=== PATIENT | female | born 1965 | race Caucasian/White ===

== ENCOUNTER 2021-01-07 10:41 | Emergency (ER) | payer OTHER ==
[~2021-01-07] VITALS: Ht 134.6 cm; Wt 31.8 kg
[~2021-01-07 10:41] MED LIST: NOHOMEMEDICATIONS; PERCOCET 5-3251 EACH PO
[2021-01-07 11:31] LABS: ABSOLUTE NEUTROPHILS 3.8 thou/uL (1.4-8.2); BASOPHILS 0.5 % (0.0-2.0); EOSINOPHILS 0.1 % (0.0-3.0); HEMATOCRIT 39.8 % (37.0-47.0); HEMOGLOBIN 13.6 gm/dL (12.0-15.0); MCH 31.4 pg (26.0-34.0); MCHC 34.1 g/dL (28.0-37.0); MCV 92.1 fL (80.0-100.0); MONOCYTES 6.3 % (1.0-8.0); PLATELET COUNT 176 thou/uL (150-400); POLYS 81.1 % (36.0-66.0); RBC 4.32 mil/uL (4.20-5.00); RDW 13.3 % (10.5-14.5); WBC 4.7 thou/uL (4.0-11.0)
[2021-01-07 11:34] LABS: ANION GAP 14 mmol/L (7-16); BUN 11 mg/dL (7-18); CALCIUM 8.6 mg/dL (8.5-10.1); CHLORIDE 102 mmol/L (98-107); CO2 21 mmol/L (21-32); CREATININE 0.7 mg/dL (0.6-1.0); GLUCOSE 60 mg/dL (74-106); POTASSIUM 3.4 mmol/L (3.5-5.1); SODIUM 137 mmol/L (136-145)
[2021-01-07 11:44] LABS: ALBUMIN 3.7 g/dL (3.4-5.0); DIRECT BILIRUBIN < 0.1 mg/dL (<0.1-0.2); LIPASE 107 U/L (73-393); SGOT 34 U/L (15-37); SGPT 24 U/L (14-59); TOTAL BILIRUBIN 0.3 mg/dL (0.2-1.0); TOTAL PROTEIN 6.9 g/dL (6.4-8.2); TROPONIN-I <0.06 ng/mL (<0.06)
[2021-01-07 11:52] LABS: URINE BILIRUBIN NEGATIVE (Negative); URINE BLOOD 2+ (Negative); URINE CLARITY CLEAR; URINE COLOR YELLOW; URINE GLUCOSE-RANDOM* NEGATIVE (Negative); URINE KETONES 3+ (Negative); URINE LEUKOCYTES-REFLEX NEGATIVE (Negative); URINE NITRITE-REFLEX NEGATIVE (Negative); URINE PROTEIN (DIPSTICK) NEGATIVE (Negative); URINE SPECIFIC GRAVITY >= 1.030 (1.005-1.035); URINE UROBILINOGEN 0.2 E.U./dl (0.2-1.0)
[2021-01-07 11:54] LABS: URINE REDUCING SUBSTANCE NEGATIVE
[2021-01-07 12:03] LABS: BACTERIA-REFLEX 1-9 Few /HPF (None Seen); CASTS None Seen /LPF (None Seen); CRYSTALS None Seen /LPF (None Seen); SQUAMOUS 0-3 Few /LPF (0-3); URINE RBC 1-2 Rare /HPF (NONE SEEN); URINE WBC-REFLEX 0-5 Rare /HPF (0-5)
[2021-01-07] MEDS ORDERED: ZOFRAN ODT4 MG PO (12:38)
[2021-01-07 12:43] VITALS: BP 100/66
--- NOTE | 2021-01-07 15:44 | EKG ---
[facility] [employer] [place] [address] ELECTROCARDIOGRAM REPORT Name: ILIANA ZIMMER Room #: DEP [facility]#: [id number] Admission: 01/07/21 Attend Phys: Discharge: 01/07/21 Date of : 67 Report #: [id number] [facility] ED Test Date: 2021-01-07 Test Time: 10:45:23 Pat Name: ILIANA ZIMMER Department: Room: Gender: F [employer]: JOEY : 1965 Requested By: Alcides Cassidy Order Number: [id number] MD: Michael Lombardo Measurements Intervals [place] Rate: 69 P: 78 FL: 118 QRS: 65 QRSD: 98 T: 56 QT: 406 QTc: 435 Interpretive Statements Sinus rhythm Borderline short FL interval LAE, consider biatrial enlargement RSR' in V1 or V2, right VCD or RVH Compared to ECG 01/30/2004 15:03:21 Right ventricular hypertrophy now present RSR' in V1 or V2 now present Electronically Signed On 01-07-2021 15:44:03 CDT by Michael Lombardo [email or web address] <ELECTRONICALLY SIGNED> By: Michael Lombardo MD, FACC 01/07/21 1544 1045 1045 Michael Lombardo MD, [facility] /EPI
== END 2021-01-07 12:43 | disposition home or self-care (01) ==
LOC: ER 10:41
PROVIDERS: Emergency Medicine
DX: A08.4 Viral intestinal infection, unspecified (principal); Z90.2 Acquired absence of lung [part of]